=== PATIENT | female | born 1995 | race Two or more races ===

== ENCOUNTER 2018-08-04 16:51 | Inpatient (IN) | payer SELFPAY ==
[~2018-08-04] VITALS: Ht 154.9 cm; Wt 65.8 kg
[2018-08-04 17:17] LABS: BASO % 0 % (0-3); EOS # 0.1 x10^3/uL (0.0-0.7); EOS % 2 % (0-3); HEMATOCRIT 40.3 % (36.0-47.0); HEMOGLOBIN 13.7 g/dL (12.0-15.5); LYMPH # 2.3 x10^3/uL (1.0-4.8); LYMPH % 32 % (24-48); MEAN CORPUSCULAR HEMOGLOBIN 29 pg (25-35); MEAN CORPUSCULAR HGB CONC 34 g/dL (31-37); MEAN CORPUSCULAR VOLUME 86 fL (79-100); MONO # 0.6 x10^3/uL (0.0-1.1); MONO % 9 % (0-9); NEUT # 4.3 x10^3uL (1.8-7.7); NEUT % 58 % (31-73); PLATELET COUNT 260 x10^3/uL (140-400); RED BLOOD COUNT 4.67 x10^6/uL (3.50-5.40); RED CELL DISTRIBUTION WIDTH 14.9 % (11.5-14.5); WHITE BLOOD COUNT 7.4 x10^3/uL (4.0-11.0)
[2018-08-04 17:18] LABS: BILIRUBIN,URINE NEGATIVE (NEG); CLARITY,URINE CLEAR; COLOR,URINE YELLOW; NITRITE,URINE NEGATIVE (NEG); PROTEIN,URINE NEGATIVE (NEG-TRACE)
[2018-08-04 17:29] LABS: CALCIUM 8.9 mg/dL (8.5-10.1); CREATININE 0.8 mg/dL (0.6-1.0); GFR 87.4; POTASSIUM 3.2 mmol/L (3.5-5.1)
[2018-08-04] MEDS ORDERED: ONDANSETRON PF 4 MG/2 ML VIAL. IV ONE (17:30)
[2018-08-04] MEDS ORDERED: fentaNYL PF VIAL 100 MCG/2 ML VIAL IM ONE (17:30)
[2018-08-04 17:31] LABS: BACTERIA,URINE FEW /HPF (0-FEW); SQUAMOUS EPITHELIAL CELL,UR MOD /LPF
[2018-08-04 17:34] LABS: ALBUMIN 3.9 g/dL (3.4-5.0); ALBUMIN/GLOBULIN RATIO 0.8 (1.0-1.7); TOTAL BILIRUBIN 0.2 mg/dL (0.2-1.0); TOTAL PROTEIN 8.7 g/dL (6.4-8.2)
[2018-08-04 17:43] LABS: AMYLASE 68 U/L (25-115); LIPASE 182 U/L (73-393)
--- NOTE | 2018-08-04 17:51 | RAD ---
Limited abdominal ultrasound History: RUQ PAIN, HX OF GALLSTONES Findings: Aorta: Limited visualization, appears grossly unremarkable where seen. Inferior vena cava: Patent Pancreas: Poorly visualized Liver: Unremarkable and not enlarged Gallbladder: Abnormal echogenicity identified within the gallbladder with posterior shadowing. This would most commonly be due to extensive cholelithiasis. The gallbladder is difficult to evaluate due to this shadowing. Positive sonographic Olivares sign. Bile ducts: No evidence of dilatation Right kidney: 11.4 cm length. No evidence of hydronephrosis. Impression: Abnormal gallbladder, difficult to evaluate due to extensive shadowing, most likely due to gallstones. Positive sonographic Olivares's sign can be associated with cholecystitis. Electronically signed by: Sai Keyes MD (08/04/2018 5:48 PM) [id number]
--- NOTE | 2018-08-04 17:54 | PHYS DOC ---
Past Medical History Past Medical History: Gallstones Alcohol Use: None Drug Use: None Adult General Chief Complaint Chief Complaint: ABDOMINAL PAIN HPI HPI Patient is a 23 year old female who presents with excruciating right upper quadrant pain. The patient is 1 month . She states that she was previously diagnosed with gallstones but had not been having a problem with this diagnosis. She states that she had immediate onset of pain today that doubled her over. She presented directly to the emergency department. She has had nausea and vomiting with the nausea. She denies fever. Her last intake was at noon today. She states that her pain started shortly after she consumed food. Review of Systems Review of Systems Constitutional: Denies fever or chills [] Eyes: Denies change in visual acuity, redness, or eye pain [] HENT: Denies nasal congestion or sore throat [] Respiratory: Denies cough or shortness of breath [] Cardiovascular: No additional information not addressed in HPI [] GI: See history of present illness : Denies dysuria or hematuria [] Musculoskeletal: Denies back pain or joint pain [] Integument: Denies rash or skin lesions [] Neurologic: Denies headache, focal weakness or sensory changes [] Endocrine: Denies polyuria or polydipsia [] All other systems were reviewed and found to be within normal limits, except as documented in this note. Current Medications Current Medications Current Medications Medications (Trade) Dose Ordered Sig/[facility] Start Time Stop Time Status Last Admin Dose Admin Fentanyl Citrate (Fentanyl 2ml Vial) 50 mcg 1X ONCE 08/04/18 18:30 08/04/18 18:31 DC 08/04/18 18:22 50 MCG Ondansetron HCl (Zofran) 4 mg 1X ONCE 08/04/18 17:30 08/04/18 17:31 DC 08/04/18 17:17 4 MG Potassium Chloride (Klor-Con) 40 meq 1X ONCE 08/04/18 18:15 08/04/18 18:16 DC 08/04/18 18:15 40 MEQ Allergies Allergies Allergies Coded Allergies Type Severity Reaction Last Updated Verified No Known Drug Allergies 08/04/18 No Physical Exam Physical Exam Constitutional: Well developed, well nourished, no acute distress, non-toxic appearance. [] Cardiovascular:Heart rate regular rhythm, no murmur [] Lungs & Thorax: Bilateral breath sounds clear to auscultation [] Abdomen: Bowel sounds normal, right upper quadrant tenderness with guarding, Olivares's is positive, no masses, no pulsatile masses. [] Skin: Warm, dry, no erythema, no rash. [] Back: No tenderness, no CVA tenderness. [] Extremities: No tenderness, no cyanosis, no clubbing, ROM intact, no edema. [] Neurologic: Alert and oriented X 3, normal motor function, normal sensory function, no focal deficits noted. [] Psychologic: Affect normal, judgement normal, mood normal. [] Current Patient Data Vital Signs Vital Signs Date Time Temp Pulse Resp B/P (MAP) Pulse Ox O2 Delivery O2 Flow Rate FiO2 08/04/18 18:30 70 18 103/58 (73) 100 08/04/18 17:07 98.0 Room Air 98.0 Lab Values Laboratory Tests Test 08/04/18 16:59 08/04/18 17:00 POC Urine HCG, Qualitative Hcg negative (Negative) White Blood Count 7.4 x10^3/uL (4.0-11.0) Red Blood Count 4.67 x10^6/uL (3.50-5.40) Hemoglobin 13.7 g/dL (12.0-15.5) Hematocrit 40.3 % (36.0-47.0) Mean Corpuscular Volume 86 fL (79-100) Mean Corpuscular Hemoglobin 29 pg (25-35) Mean Corpuscular Hemoglobin Concent 34 g/dL (31-37) Red Cell Distribution Width 14.9 % (11.5-14.5) H Platelet Count 260 x10^3/uL (140-400) Neutrophils (%) (Auto) 58 % (31-73) Lymphocytes (%) (Auto) 32 % (24-48) Monocytes (%) (Auto) 9 % (0-9) Eosinophils (%) (Auto) 2 % (0-3) Basophils (%) (Auto) 0 % (0-3) Neutrophils # (Auto) 4.3 x10^3uL (1.8-7.7) Lymphocytes # (Auto) 2.3 x10^3/uL (1.0-4.8) Monocytes # (Auto) 0.6 x10^3/uL (0.0-1.1) Eosinophils # (Auto) 0.1 x10^3/uL (0.0-0.7) Basophils # (Auto) 0.0 x10^3/uL (0.0-0.2) Urine Collection Type Unknown Urine Color Yellow Urine Clarity Clear Urine pH 7.0 Urine Specific Fisher 1.020 Urine Protein Negative mg/dL (NEG-TRACE) Urine Glucose (UA) Negative mg/dL (NEG) Urine Ketones (Stick) Negative mg/dL (NEG) Urine Blood Negative (NEG) Urine Nitrite Negative (NEG) Urine Bilirubin Negative (NEG) Urine Urobilinogen Dipstick 1.0 mg/dL (0.2 mg/dL) Urine Leukocyte Esterase Negative (NEG) Urine RBC 1-2 /HPF (0-2) Urine WBC 1-4 /HPF (0-4) Urine Squamous Epithelial Cells Mod /LPF Urine Bacteria Few /HPF (0-FEW) Urine Mucus Mod /LPF Sodium Level 140 mmol/L (136-145) Potassium Level 3.2 mmol/L (3.5-5.1) L Chloride Level 101 mmol/L (98-107) Carbon Dioxide Level 29 mmol/L (21-32) Anion Gap 10 (6-14) Blood Urea Nitrogen 14 mg/dL (7-20) Creatinine 0.8 mg/dL (0.6-1.0) Estimated GFR (Cockcroft-Gault) 87.4 BUN/Creatinine Ratio 18 (6-20) Glucose Level 80 mg/dL (70-99) Calcium Level 8.9 mg/dL (8.5-10.1) Total Bilirubin 0.2 mg/dL (0.2-1.0) Aspartate Amino Transferase (AST) 44 U/L (15-37) H Alanine Aminotransferase (ALT) 49 U/L (14-59) Alkaline Phosphatase 95 U/L (46-116) Total Protein 8.7 g/dL (6.4-8.2) H Albumin 3.9 g/dL (3.4-5.0) Albumin/Globulin Ratio 0.8 (1.0-1.7) L Amylase Level 68 U/L (25-115) Lipase 182 U/L (73-393) Laboratory Tests 08/04/18 17:00 Laboratory Tests 08/04/18 17:00 EKG EKG [] Radiology/Procedures Radiology/Procedures []PATIENT: RANULFO YODERACCOUNT: [id number]#: [id number] : 1995 LOCATION: ER AGE: 23 SEX: F EXAM STATUS: REG ER ORD. PHYSICIAN: DIANA GRACE APRN REASON: ruq pain, hx gallstones PROCEDURE: ABDOMEN LTD Limited abdominal ultrasound History: RUQ PAIN, HX OF GALLSTONES Findings: Aorta: Limited visualization, appears grossly unremarkable where seen. Inferior vena cava: Patent Pancreas: Poorly visualized Liver: Unremarkable and not enlarged Gallbladder: Abnormal echogenicity identified within the gallbladder with posterior shadowing. This would most commonly be due to extensive cholelithiasis. The gallbladder is difficult to evaluate due to this shadowing. Positive sonographic Olivares sign. Bile ducts: No evidence of dilatation Right kidney: 11.4 cm length. No evidence of hydronephrosis. Impression: Abnormal gallbladder, difficult to evaluate due to extensive shadowing, most likely due to gallstones. Positive sonographic Olivares's sign can be associated with cholecystitis. Electronically signed by: Sai Keyes MD (08/04/2018 5:48 PM) [id number] DICTATED and SIGNED BY: SAI KEYES MD DATE: 08/04/181744 Course & Med Decision Making Course & Med Decision Making Pertinent Labs and Imaging studies reviewed. (See chart for details) []The patient received fentanyl in the emergency Department as well as Zofran to control her symptoms. Dr. Izaguirre was consulted in the care of this patient and he will take her to surgery tomorrow. Dr. Sheridan admitted the patient to his service. The patient is to remain nothing by mouth. Dragon Disclaimer Dragon Disclaimer This electronic medical record was generated, in whole or in part, using a voice recognition dictation system. Departure Departure Disposition: 09 ADMITTED INPATIENT Admitting Physician: Julieta Sheridan Condition: GOOD Referrals: NO PCP (PCP) DIANA GRACE APRN Aug 04, 2018 17:54
[2018-08-04] MEDS ORDERED: POTASSIUM CHLORIDE 20 MEQ TABLET.ER. PO ONE (18:15)
[2018-08-04] MEDS ORDERED: fentaNYL PF VIAL 100 MCG/2 ML VIAL IV ONE (18:30)
[2018-08-04] MEDS ORDERED: fentaNYL PF VIAL 100 MCG/2 ML VIAL IV PRN (18:45)
[2018-08-04] MEDS ORDERED: MORPHINE SULFATE 4 MG/ML VIAL. IV PRN (18:45)
[2018-08-04] MEDS ORDERED: ONDANSETRON PF 4 MG/2 ML VIAL. IV PRN (18:45)
[2018-08-04 19:50] VITALS: BP 100/65
[2018-08-04] MEDS: IV NORMAL SALINE 1000ML BAG 1,000 ML IV SCH (20:22)
[2018-08-04 23:00] VITALS: BP 100/63
[2018-08-05] VITALS (13 sets, daily range): BP systolic 90–118; BP diastolic 48–72
--- NOTE | 2018-08-05 00:07 | HP ---
ADMIT DATE: 08/04/2018 CHIEF COMPLAINT: Abdominal pain. HISTORY OF PRESENT ILLNESS: The patient is a pleasant, healthy 23-year-old female who presented with abdominal pain. She had a baby a month ago. We checked her ultrasound. She has got a lot of gallstones. We suspect she has cholecystitis. We are going to admit the patient and consult General Surgery. She has associated nausea and rates it 10/10. She feels miserable. Symptoms are worse with food. PAST MEDICAL HISTORY: Benign other than she had a baby a month ago. ALLERGIES: None. FAMILY HISTORY: Diabetes. SOCIAL HISTORY: She does not drink, smoke or take drugs. MEDICATIONS: Reviewed, please refer to the MRAD. REVIEW OF SYSTEMS: GENERAL: No history of weight change, weakness or fevers. SKIN: No bruising, hair changes or rashes. EYES: No blurred, double or loss of vision. NOSE AND THROAT: No history of nosebleeds, hoarseness or sore throat. HEART: No history of palpitations, chest pain or shortness of breath on exertion. LUNGS: Denies cough, hemoptysis, wheezing or shortness of breath. GASTROINTESTINAL: She complains of abdominal pain. GENITOURINARY: No history of frequency, urgency, hesitancy or nocturia. NEUROLOGIC: Denies history of numbness, tingling, tremor or weakness. PSYCHIATRIC: No history of panic, anxiety or depression. ENDOCRINE: No history of heat or cold intolerance, polyuria or polydipsia. EXTREMITIES: Denies muscle weakness, joint pain, pain on walking or stiffness. PHYSICAL EXAMINATION: VITAL SIGNS: Temperature afebrile, pulse 92, respirations 18, blood pressure 144/90. GENERAL: She is alert, cooperative. Her is present. HEART: Normal S1, S2. LUNGS: Clear to auscultation. ABDOMEN: Soft. Decreased bowel sounds, tender in the right upper quadrant. EXTREMITIES: No edema. SKIN: No rashes. ENDOCRINE: No thyromegaly. LYMPHATICS: No cervical nodes. HEMATOPOIETIC: No bruising. LABORATORY DATA: Potassium is low at 3.2. Hematology is normal. Urinalysis negative. ASSESSMENT AND PLAN: Symptomatic gallstones. The patient has been admitted. We will consult General Surgery. IV fluids, IV Zofran, p.r.n. narcotics. Continue home medicines. Repeat her labs in the morning. PROGNOSIS: Guarded. WALTER SAVAGE DO DR: TIA/love JOB#: [id number] / [id number]
[2018-08-05] MEDS: IV NORMAL SALINE 1000ML BAG 1,000 ML IV SCH ×2 (04:02→10:45)
[2018-08-05 05:06] LABS: BASO % 0 % (0-3); EOS # 0.1 x10^3/uL (0.0-0.7); EOS % 3 % (0-3); HEMATOCRIT 36.5 % (36.0-47.0); HEMOGLOBIN 12.2 g/dL (12.0-15.5); LYMPH # 1.7 x10^3/uL (1.0-4.8); LYMPH % 35 % (24-48); MEAN CORPUSCULAR HEMOGLOBIN 29 pg (25-35); MEAN CORPUSCULAR HGB CONC 34 g/dL (31-37); MEAN CORPUSCULAR VOLUME 87 fL (79-100); MONO # 0.5 x10^3/uL (0.0-1.1); MONO % 10 % (0-9); NEUT # 2.5 x10^3uL (1.8-7.7); NEUT % 52 % (31-73); PLATELET COUNT 216 x10^3/uL (140-400); RED BLOOD COUNT 4.22 x10^6/uL (3.50-5.40); RED CELL DISTRIBUTION WIDTH 14.8 % (11.5-14.5); WHITE BLOOD COUNT 4.8 x10^3/uL (4.0-11.0)
[2018-08-05 05:10] LABS: CALCIUM 8.7 mg/dL (8.5-10.1); CREATININE 0.7 mg/dL (0.6-1.0); POTASSIUM 3.8 mmol/L (3.5-5.1)
[2018-08-05] MEDS ORDERED: SURGICEL HEMOSTAT 4X8 EACH. ONE (08:09)
[2018-08-05] MEDS ORDERED: IOHEXOL 300 MG/ML 100ML VIAL. ONE (08:09)
[2018-08-05] MEDS ORDERED: BUPIVAC MPF-EPI 0.5%-1:200000 30 ML VIAL. ONE (08:09)
[2018-08-05] MEDS ORDERED: IV RINGERS,LACTATED 1000ML 1,000 ML IV SCH (08:38)
[2018-08-05] MEDS ORDERED: HYDROmorphone 2 MG/ML VIAL IV PRN (08:45)
[2018-08-05] MEDS ORDERED: fentaNYL PF VIAL 100 MCG/2 ML VIAL IV PRN ×2 (08:45)
[2018-08-05] MEDS ORDERED: LIDOCAINE 1% PF 2 ML VIAL. ID PRN (08:45)
[2018-08-05] MEDS ORDERED: MORPHINE SULFATE 2 MG/ML VIAL. IV PRN (08:45)
[2018-08-05] MEDS ORDERED: PROCHLORPERAZINE 10 MG/2 ML VIAL. IV PRN (08:45)
[2018-08-05] MEDS ORDERED: ONDANSETRON PF 4 MG/2 ML VIAL. IV PRN (08:45)
[2018-08-05] MEDS ORDERED: PROPOFOL 20 ML IV ONE (09:37)
[2018-08-05] MEDS ORDERED: MIDAZOLAM HCL/PF 2 MG/2 ML VIAL. ONE (09:38)
[2018-08-05] MEDS ORDERED: DEXAMETHASONE SOD PHOS 20 MG/5 ML VIAL. ONE (09:38)
[2018-08-05] MEDS ORDERED: ONDANSETRON PF 4 MG/2 ML VIAL. ONE (09:38)
[2018-08-05] MEDS ORDERED: ROCURONIUM 50 MG/5 ML VIAL. ONE (09:38)
[2018-08-05] MEDS ORDERED: fentaNYL PF VIAL 100 MCG/2 ML VIAL ONE (09:38)
[2018-08-05] MEDS ORDERED: KETOROLAC 30 MG/ML INJ FOR OR. INJ ONE (09:38)
--- NOTE | 2018-08-05 10:09 | PDOC ---
PROGRESS NOTES History of Present Illness History of Present Illness ASSESSMENT Symptomatic gallstones. admitted. General Surgery. to or today IV fluids, IV Zofran, p.r.n. narcotics. home medicines. pain control sq lovenox dvt prophylaxis Vitals Vitals Vital Signs Date Time Temp Pulse Resp B/P (MAP) Pulse Ox O2 Delivery O2 Flow Rate FiO2 08/05/18 07:00 97.9 60 18 95/54 (68) 100 Room Air 97.9 Physical Exam Physical Exam GENERAL: She is alert, cooperative. HEART: Normal S1, S2. LUNGS: Clear to auscultation. ABDOMEN: Soft. Decreased bowel sounds, tender in the right upper quadrant. EXTREMITIES: No edema. SKIN: No rashes. ENDOCRINE: No thyromegaly. LYMPHATICS: No cervical nodes. HEMATOPOIETIC: No bruising. General: Alert, Oriented X3, Cooperative, mild distress Heart: Regular rate, Normal S1, Normal S2 Lungs: Clear Abdomen: Normal bowel sounds Extremities: No clubbing, No cyanosis Skin: No significant lesion Labs LABS Laboratory Tests Test 08/04/18 16:59 08/04/18 17:00 08/05/18 04:15 Bedside Urine HCG, Qualitative Hcg negative (Negative) White Blood Count 7.4 x10^3/uL (4.0-11.0) 4.8 x10^3/uL (4.0-11.0) Red Blood Count 4.67 x10^6/uL (3.50-5.40) 4.22 x10^6/uL (3.50-5.40) Hemoglobin 13.7 g/dL (12.0-15.5) 12.2 g/dL (12.0-15.5) Hematocrit 40.3 % (36.0-47.0) 36.5 % (36.0-47.0) Mean Corpuscular Volume 86 fL (79-100) 87 fL (79-100) Mean Corpuscular Hemoglobin 29 pg (25-35) 29 pg (25-35) Mean Corpuscular Hemoglobin Concent 34 g/dL (31-37) 34 g/dL (31-37) Red Cell Distribution Width 14.9 % (11.5-14.5) 14.8 % (11.5-14.5) Platelet Count 260 x10^3/uL (140-400) 216 x10^3/uL (140-400) Neutrophils (%) (Auto) 58 % (31-73) 52 % (31-73) Lymphocytes (%) (Auto) 32 % (24-48) 35 % (24-48) Monocytes (%) (Auto) 9 % (0-9) 10 % (0-9) Eosinophils (%) (Auto) 2 % (0-3) 3 % (0-3) Basophils (%) (Auto) 0 % (0-3) 0 % (0-3) Neutrophils # (Auto) 4.3 x10^3uL (1.8-7.7) 2.5 x10^3uL (1.8-7.7) Lymphocytes # (Auto) 2.3 x10^3/uL (1.0-4.8) 1.7 x10^3/uL (1.0-4.8) Monocytes # (Auto) 0.6 x10^3/uL (0.0-1.1) 0.5 x10^3/uL (0.0-1.1) Eosinophils # (Auto) 0.1 x10^3/uL (0.0-0.7) 0.1 x10^3/uL (0.0-0.7) Basophils # (Auto) 0.0 x10^3/uL (0.0-0.2) 0.0 x10^3/uL (0.0-0.2) Urine Collection Type Unknown Urine Color Yellow Urine Clarity Clear Urine pH 7.0 Urine Specific [place]field 1.020 Urine Protein Negative mg/dL (NEG-TRACE) Urine Glucose (UA) Negative mg/dL (NEG) Urine Ketones (Stick) Negative mg/dL (NEG) Urine Blood Negative (NEG) Urine Nitrite Negative (NEG) Urine Bilirubin Negative (NEG) Urine Urobilinogen Dipstick 1.0 mg/dL (0.2 mg/dL) Urine Leukocyte Esterase Negative (NEG) Urine RBC 1-2 /HPF (0-2) Urine WBC 1-4 /HPF (0-4) Urine Squamous Epithelial Cells Mod /LPF Urine Bacteria Few /HPF (0-FEW) Urine Mucus Mod /LPF Sodium Level 140 mmol/L (136-145) 141 mmol/L (136-145) Potassium Level 3.2 mmol/L (3.5-5.1) 3.8 mmol/L (3.5-5.1) Chloride Level 101 mmol/L (98-107) 108 mmol/L (98-107) Carbon Dioxide Level 29 mmol/L (21-32) 25 mmol/L (21-32) Anion Gap 10 (6-14) 8 (6-14) Blood Urea Nitrogen 14 mg/dL (7-20) 9 mg/dL (7-20) Creatinine 0.8 mg/dL (0.6-1.0) 0.7 mg/dL (0.6-1.0) Estimated GFR (Cockcroft-Gault) 87.4 102.0 BUN/Creatinine Ratio 18 (6-20) Glucose Level 80 mg/dL (70-99) 82 mg/dL (70-99) Calcium Level 8.9 mg/dL (8.5-10.1) 8.7 mg/dL (8.5-10.1) Total Bilirubin 0.2 mg/dL (0.2-1.0) Aspartate Amino Transf (AST/SGOT) 44 U/L (15-37) Alanine Aminotransferase (ALT/SGPT) 49 U/L (14-59) Alkaline Phosphatase 95 U/L (46-116) Total Protein 8.7 g/dL (6.4-8.2) Albumin 3.9 g/dL (3.4-5.0) Albumin/Globulin Ratio 0.8 (1.0-1.7) Amylase Level 68 U/L (25-115) Lipase 182 U/L (73-393) Assessment and Plan Assessmemt and Plan Problems Medical Problems: (1) Cholelithiasis Status: Acute Comment Review of Relevant I have reviewed the following items jorden (where applicable) has been applied. Labs Laboratory Tests Test 08/04/18 16:59 08/04/18 17:00 08/05/18 04:15 Bedside Urine HCG, Qualitative Hcg negative (Negative) White Blood Count 7.4 x10^3/uL (4.0-11.0) 4.8 x10^3/uL (4.0-11.0) Red Blood Count 4.67 x10^6/uL (3.50-5.40) 4.22 x10^6/uL (3.50-5.40) Hemoglobin 13.7 g/dL (12.0-15.5) 12.2 g/dL (12.0-15.5) Hematocrit 40.3 % (36.0-47.0) 36.5 % (36.0-47.0) Mean Corpuscular Volume 86 fL (79-100) 87 fL (79-100) Mean Corpuscular Hemoglobin 29 pg (25-35) 29 pg (25-35) Mean Corpuscular Hemoglobin Concent 34 g/dL (31-37) 34 g/dL (31-37) Red Cell Distribution Width 14.9 % (11.5-14.5) 14.8 % (11.5-14.5) Platelet Count 260 x10^3/uL (140-400) 216 x10^3/uL (140-400) Neutrophils (%) (Auto) 58 % (31-73) 52 % (31-73) Lymphocytes (%) (Auto) 32 % (24-48) 35 % (24-48) Monocytes (%) (Auto) 9 % (0-9) 10 % (0-9) Eosinophils (%) (Auto) 2 % (0-3) 3 % (0-3) Basophils (%) (Auto) 0 % (0-3) 0 % (0-3) Neutrophils # (Auto) 4.3 x10^3uL (1.8-7.7) 2.5 x10^3uL (1.8-7.7) Lymphocytes # (Auto) 2.3 x10^3/uL (1.0-4.8) 1.7 x10^3/uL (1.0-4.8) Monocytes # (Auto) 0.6 x10^3/uL (0.0-1.1) 0.5 x10^3/uL (0.0-1.1) Eosinophils # (Auto) 0.1 x10^3/uL (0.0-0.7) 0.1 x10^3/uL (0.0-0.7) Basophils # (Auto) 0.0 x10^3/uL (0.0-0.2) 0.0 x10^3/uL (0.0-0.2) Urine Collection Type Unknown Urine Color Yellow Urine Clarity Clear Urine pH 7.0 Urine Specific [place] 1.020 Urine Protein Negative mg/dL (NEG-TRACE) Urine Glucose (UA) Negative mg/dL (NEG) Urine Ketones (Stick) Negative mg/dL (NEG) Urine Blood Negative (NEG) Urine Nitrite Negative (NEG) Urine Bilirubin Negative (NEG) Urine Urobilinogen Dipstick 1.0 mg/dL (0.2 mg/dL) Urine Leukocyte Esterase Negative (NEG) Urine RBC 1-2 /HPF (0-2) Urine WBC 1-4 /HPF (0-4) Urine Squamous Epithelial Cells Mod /LPF Urine Bacteria Few /HPF (0-FEW) Urine Mucus Mod /LPF Sodium Level 140 mmol/L (136-145) 141 mmol/L (136-145) Potassium Level 3.2 mmol/L (3.5-5.1) 3.8 mmol/L (3.5-5.1) Chloride Level 101 mmol/L (98-107) 108 mmol/L (98-107) Carbon Dioxide Level 29 mmol/L (21-32) 25 mmol/L (21-32) Anion Gap 10 (6-14) 8 (6-14) Blood Urea Nitrogen 14 mg/dL (7-20) 9 mg/dL (7-20) Creatinine 0.8 mg/dL (0.6-1.0) 0.7 mg/dL (0.6-1.0) Estimated GFR (Cockcroft-Gault) 87.4 102.0 BUN/Creatinine Ratio 18 (6-20) Glucose Level 80 mg/dL (70-99) 82 mg/dL (70-99) Calcium Level 8.9 mg/dL (8.5-10.1) 8.7 mg/dL (8.5-10.1) Total Bilirubin 0.2 mg/dL (0.2-1.0) Aspartate Amino Transf (AST/SGOT) 44 U/L (15-37) Alanine Aminotransferase (ALT/SGPT) 49 U/L (14-59) Alkaline Phosphatase 95 U/L (46-116) Total Protein 8.7 g/dL (6.4-8.2) Albumin 3.9 g/dL (3.4-5.0) Albumin/Globulin Ratio 0.8 (1.0-1.7) Amylase Level 68 U/L (25-115) Lipase 182 U/L (73-393) Laboratory Tests Test 08/04/18 16:59 08/04/18 17:00 08/05/18 04:15 Bedside Urine HCG, Qualitative Hcg negative (Negative) White Blood Count 7.4 x10^3/uL (4.0-11.0) 4.8 x10^3/uL (4.0-11.0) Red Blood Count 4.67 x10^6/uL (3.50-5.40) 4.22 x10^6/uL (3.50-5.40) Hemoglobin 13.7 g/dL (12.0-15.5) 12.2 g/dL (12.0-15.5) Hematocrit 40.3 % (36.0-47.0) 36.5 % (36.0-47.0) Mean Corpuscular Volume 86 fL (79-100) 87 fL (79-100) Mean Corpuscular Hemoglobin 29 pg (25-35) 29 pg (25-35) Mean Corpuscular Hemoglobin Concent 34 g/dL (31-37) 34 g/dL (31-37) Red Cell Distribution Width 14.9 % (11.5-14.5) 14.8 % (11.5-14.5) Platelet Count 260 x10^3/uL (140-400) 216 x10^3/uL (140-400) Neutrophils (%) (Auto) 58 % (31-73) 52 % (31-73) Lymphocytes (%) (Auto) 32 % (24-48) 35 % (24-48) Monocytes (%) (Auto) 9 % (0-9) 10 % (0-9) Eosinophils (%) (Auto) 2 % (0-3) 3 % (0-3) Basophils (%) (Auto) 0 % (0-3) 0 % (0-3) Neutrophils # (Auto) 4.3 x10^3uL (1.8-7.7) 2.5 x10^3uL (1.8-7.7) Lymphocytes # (Auto) 2.3 x10^3/uL (1.0-4.8) 1.7 x10^3/uL (1.0-4.8) Monocytes # (Auto) 0.6 x10^3/uL (0.0-1.1) 0.5 x10^3/uL (0.0-1.1) Eosinophils # (Auto) 0.1 x10^3/uL (0.0-0.7) 0.1 x10^3/uL (0.0-0.7) Basophils # (Auto) 0.0 x10^3/uL (0.0-0.2) 0.0 x10^3/uL (0.0-0.2) Urine Collection Type Unknown Urine Color Yellow Urine Clarity Clear Urine pH 7.0 Urine Specific [place] 1.020 Urine Protein Negative mg/dL (NEG-TRACE) Urine Glucose (UA) Negative mg/dL (NEG) Urine Ketones (Stick) Negative mg/dL (NEG) Urine Blood Negative (NEG) Urine Nitrite Negative (NEG) Urine Bilirubin Negative (NEG) Urine Urobilinogen Dipstick 1.0 mg/dL (0.2 mg/dL) Urine Leukocyte Esterase Negative (NEG) Urine RBC 1-2 /HPF (0-2) Urine WBC 1-4 /HPF (0-4) Urine Squamous Epithelial Cells Mod /LPF Urine Bacteria Few /HPF (0-FEW) Urine Mucus Mod /LPF Sodium Level 140 mmol/L (136-145) 141 mmol/L (136-145) Potassium Level 3.2 mmol/L (3.5-5.1) 3.8 mmol/L (3.5-5.1) Chloride Level 101 mmol/L (98-107) 108 mmol/L (98-107) Carbon Dioxide Level 29 mmol/L (21-32) 25 mmol/L (21-32) Anion Gap 10 (6-14) 8 (6-14) Blood Urea Nitrogen 14 mg/dL (7-20) 9 mg/dL (7-20) Creatinine 0.8 mg/dL (0.6-1.0) 0.7 mg/dL (0.6-1.0) Estimated GFR (Cockcroft-Gault) 87.4 102.0 BUN/Creatinine Ratio 18 (6-20) Glucose Level 80 mg/dL (70-99) 82 mg/dL (70-99) Calcium Level 8.9 mg/dL (8.5-10.1) 8.7 mg/dL (8.5-10.1) Total Bilirubin 0.2 mg/dL (0.2-1.0) Aspartate Amino Transf (AST/SGOT) 44 U/L (15-37) Alanine Aminotransferase (ALT/SGPT) 49 U/L (14-59) Alkaline Phosphatase 95 U/L (46-116) Total Protein 8.7 g/dL (6.4-8.2) Albumin 3.9 g/dL (3.4-5.0) Albumin/Globulin Ratio 0.8 (1.0-1.7) Amylase Level 68 U/L (25-115) Lipase 182 U/L (73-393) Medications Current Medications Fentanyl Citrate (Fentanyl 2ml Vial) 75 mcg 1X ONCE IM Last administered on at 17:18; Start 08/04/18 at 17:30; Stop 08/04/18 at 17:31; Status DC Ondansetron HCl (Zofran) 4 mg 1X ONCE IV Last administered on 08/04/18at 17:17 ; Start 08/04/18 at 17:30; Stop 08/04/18 at 17:31; Status DC Potassium Chloride (Klor-Con) 40 meq 1X ONCE PO Last administered on at 18:15; Start 08/04/18 at 18:15; Stop 08/04/18 at 18:16; Status DC Fentanyl Citrate (Fentanyl 2ml Vial) 50 mcg 1X ONCE IV Last administered on at 18:22; Start 08/04/18 at 18:30; Stop 08/04/18 at 18:31; Status DC Ondansetron HCl (Zofran) 4 mg PRN Q8HRS PRN IV NAUSEA/VOMITING; Start at 18:45; Stop 08/05/18 at 18:44 Morphine Sulfate (Morphine Sulfate) 4 mg PRN Q2HR PRN IV PAIN; Start 08/04/18 at 18:45; Stop 08/05/18 at 18:44 Fentanyl Citrate (Fentanyl 2ml Vial) 50 mcg PRN Q2HR PRN IV PAIN; Start at 18:45; Stop 08/05/18 at 18:44 Sodium Chloride 1,000 ml @ 125 mls/hr Q8H IV Last administered on 08/05/18at 04:02; Start 08/04/18 at 18:45; Stop 08/05/18 at 18:44 Bupivacaine HCl/ Epinephrine Bitart (Sensorcain-Mpf Epi 0.5%-1:[id number]) 30 ml STK -MED ONCE .ROUTE ; Start 08/05/18 at 08:09; Stop 08/05/18 at 08:10; Status DC Iohexol (Omnipaque 300 Mg/ml) 100 ml STK-MED ONCE .ROUTE ; Start 08/05/18 at 08 :09; Stop 08/05/18 at 08:10; Status DC Cellulose (Surgicel Hemostat 4x8) 1 each STK-MED ONCE .ROUTE ; Start 08/05/18 at 08:09; Stop 08/05/18 at 08:10; Status DC Ondansetron HCl (Zofran) 4 mg PRN Q6HRS PRN IV NAUSEA/VOMITING; Start at 08:45; Stop 08/05/18 at 18:00 Fentanyl Citrate (Fentanyl 2ml Vial) 25 mcg PRN Q5MIN PRN IV MILD PAIN; Start 08/05/18 at 08:45; Stop 08/05/18 at 18:00 Fentanyl Citrate (Fentanyl 2ml Vial) 50 mcg PRN Q5MIN PRN IV MODERATE TO SEVERE PAIN; Start 08/05/18 at 08:45; Stop 08/05/18 at 18:00 Morphine Sulfate (Morphine Sulfate) 1 mg PRN Q10MIN PRN IV SEVERE PAIN; Start 08/05/18 at 08:45; Stop 08/05/18 at 18:00 Ringer's Solution 1,000 ml @ 30 mls/hr Q24H IV ; Start 08/05/18 at 08:38; Stop 08/05/18 at 20:37 Lidocaine HCl (Xylocaine-Mpf 1% 2ml Vial) 2 ml PRN 1X PRN ID PRIOR TO IV START ; Start 08/05/18 at 08:45; Stop 08/05/18 at 18:00 Hydromorphone HCl (Dilaudid) 0.5 mg PRN Q10MIN PRN IV SEV PAIN, Second choice; Start 08/05/18 at 08:45; Stop 08/05/18 at 18:00 Prochlorperazine Edisylate (Compazine) 5 mg PACU PRN PRN IV NAUSEA, MRX1; Start 08/05/18 at 08:45; Stop 08/05/18 at 18:00 Propofol 20 ml @ As Directed STK-MED ONCE IV ; Start 08/05/18 at 09:37; Stop 08/05/18 at 09:38; Status DC Midazolam HCl (Versed) 2 mg STK-MED ONCE .ROUTE ; Start 08/05/18 at 09:38; Stop 08/05/18 at 09:39; Status DC Fentanyl Citrate (Fentanyl 2ml Vial) 100 mcg STK-MED ONCE .ROUTE ; Start at 09:38; Stop 08/05/18 at 09:39; Status DC Rocuronium [place] (Zemuron) 50 mg STK-MED ONCE .ROUTE ; Start 08/05/18 at 09: 38; Stop 08/05/18 at 09:39; Status DC Dexamethasone Sodium Phosphate (Decadron) 20 mg STK-MED ONCE .ROUTE ; Start at 09:38; Stop 08/05/18 at 09:39; Status DC Ondansetron HCl (Zofran) 4 mg STK-MED ONCE .ROUTE ; Start 08/05/18 at 09:38; Stop 08/05/18 at 09:39; Status DC Ketorolac Tromethamine (Toradol For Or Only) 30 mg STK-MED ONCE INJ ; Start at 09:38; Stop 08/05/18 at 09:39; Status DC Vitals/I & O Vital Sign - Last 24 Hours 08/04/18 08/04/18 08/04/18 08/04/18 17:07 17:18 18:22 18:30 Temp 98.0 98.0 Pulse 75 70 Resp 16 18 B/P (MAP) 130/70 (90) 103/58 (73) Pulse Ox 100 100 100 100 O2 Delivery Room Air 08/04/18 08/04/18 08/05/18 08/05/18 19:50 23:00 03:00 07:00 Temp 98.2 97.8 97.5 97.9 98.2 97.8 97.5 97.9 Pulse 63 70 62 60 Resp 18 18 18 18 B/P (MAP) 100/65 (77) 100/63 (75) 90/48 (62) 95/54 (68) Pulse Ox 99 97 99 100 O2 Delivery Room Air Room Air Room Air Room Air Intake and Output 08/04/18 08/04/18 08/05/18 15:00 23:00 07:00 Intake Total 1200 ml Balance 1200 ml GARTH SAMPSON MD Aug 05, 2018 10:09
--- NOTE | 2018-08-05 10:26 | PDOC2 ---
CONSULT Date of Consult Date of Consult DATE: 08/05/18 TIME: 10:23 Reason for Consult Reason for Consult: Abdominal pain Referring Physician Referring Physician: Fatimah Identification/Chief Complaint Chief Complaint Abdominal pain with nausea Source Source: Patient History of Present Illness Reason for Visit: 23-year-old female is had multiple episodes of right upper quadrant abdominal pain several of these times during her she since delivered and is having severe right upper quadrant abdominal pain ultrasound shows multiple gallstones and contracted gallbladder Past Medical History Cardiovascular: No pertinent hx Pulmonary: No pertinent hx GI: No pertinent hx Heme/Onc: No pertinent hx Hepatobiliary: No pertinent hx Psych: No pertinent hx Infectious disease: No pertinent hx ENT: No pertinent hx Renal/: No pertinent hx Dermatology: No pertinent hx Past Surgical History Past Surgical History: No pertinent history Family History Family History: No Significant Social History No ALCOHOL: none Drugs: None Lives: with Family Current Problem List Problem List Problems Medical Problems: (1) Cholelithiasis Status: Acute Current Medications Current Medications Current Medications Fentanyl Citrate (Fentanyl 2ml Vial) 75 mcg 1X ONCE IM Last administered on at 17:18; Start 08/04/18 at 17:30; Stop 08/04/18 at 17:31; Status DC Ondansetron HCl (Zofran) 4 mg 1X ONCE IV Last administered on 08/04/18at 17:17 ; Start 08/04/18 at 17:30; Stop 08/04/18 at 17:31; Status DC Potassium Chloride (Klor-Con) 40 meq 1X ONCE PO Last administered on at 18:15; Start 08/04/18 at 18:15; Stop 08/04/18 at 18:16; Status DC Fentanyl Citrate (Fentanyl 2ml Vial) 50 mcg 1X ONCE IV Last administered on at 18:22; Start 08/04/18 at 18:30; Stop 08/04/18 at 18:31; Status DC Ondansetron HCl (Zofran) 4 mg PRN Q8HRS PRN IV NAUSEA/VOMITING; Start at 18:45; Stop 08/05/18 at 18:44 Morphine Sulfate (Morphine Sulfate) 4 mg PRN Q2HR PRN IV PAIN; Start 08/04/18 at 18:45; Stop 08/05/18 at 18:44 Fentanyl Citrate (Fentanyl 2ml Vial) 50 mcg PRN Q2HR PRN IV PAIN; Start at 18:45; Stop 08/05/18 at 18:44 Sodium Chloride 1,000 ml @ 125 mls/hr Q8H IV Last administered on 08/05/18at 04:02; Start 08/04/18 at 18:45; Stop 08/05/18 at 18:44 Bupivacaine HCl/ Epinephrine Bitart (Sensorcain-Mpf Epi 0.5%-[id number]) 30 ml STK -MED ONCE .ROUTE ; Start 08/05/18 at 08:09; Stop 08/05/18 at 08:10; Status DC Iohexol (Omnipaque 300 Mg/ml) 100 ml STK-MED ONCE .ROUTE ; Start 08/05/18 at 08 :09; Stop 08/05/18 at 08:10; Status DC Cellulose (Surgicel Hemostat 4x8) 1 each STK-MED ONCE .ROUTE ; Start 08/05/18 at 08:09; Stop 08/05/18 at 08:10; Status DC Ondansetron HCl (Zofran) 4 mg PRN Q6HRS PRN IV NAUSEA/VOMITING; Start at 08:45; Stop 08/05/18 at 18:00 Fentanyl Citrate (Fentanyl 2ml Vial) 25 mcg PRN Q5MIN PRN IV MILD PAIN; Start 08/05/18 at 08:45; Stop 08/05/18 at 18:00 Fentanyl Citrate (Fentanyl 2ml Vial) 50 mcg PRN Q5MIN PRN IV MODERATE TO SEVERE PAIN; Start 08/05/18 at 08:45; Stop 08/05/18 at 18:00 Morphine Sulfate (Morphine Sulfate) 1 mg PRN Q10MIN PRN IV SEVERE PAIN; Start 08/05/18 at 08:45; Stop 08/05/18 at 18:00 Ringer's Solution 1,000 ml @ 30 mls/hr Q24H IV ; Start 08/05/18 at 08:38; Stop 08/05/18 at 20:37 Lidocaine HCl (Xylocaine-Mpf 1% 2ml Vial) 2 ml PRN 1X PRN ID PRIOR TO IV START ; Start 08/05/18 at 08:45; Stop 08/05/18 at 18:00 Hydromorphone HCl (Dilaudid) 0.5 mg PRN Q10MIN PRN IV SEV PAIN, Second choice; Start 08/05/18 at 08:45; Stop 08/05/18 at 18:00 Prochlorperazine Edisylate (Compazine) 5 mg PACU PRN PRN IV NAUSEA, MRX1; Start 08/05/18 at 08:45; Stop 08/05/18 at 18:00 Propofol 20 ml @ As Directed STK-MED ONCE IV ; Start 08/05/18 at 09:37; Stop 08/05/18 at 09:38; Status DC Midazolam HCl (Versed) 2 mg STK-MED ONCE .ROUTE ; Start 08/05/18 at 09:38; Stop 08/05/18 at 09:39; Status DC Fentanyl Citrate (Fentanyl 2ml Vial) 100 mcg STK-MED ONCE .ROUTE ; Start at 09:38; Stop 08/05/18 at 09:39; Status DC Rocuronium [place] (Zemuron) 50 mg STK-MED ONCE .ROUTE ; Start 08/05/18 at 09: 38; Stop 08/05/18 at 09:39; Status DC Dexamethasone Sodium Phosphate (Decadron) 20 mg STK-MED ONCE .ROUTE ; Start at 09:38; Stop 08/05/18 at 09:39; Status DC Ondansetron HCl (Zofran) 4 mg STK-MED ONCE .ROUTE ; Start 08/05/18 at 09:38; Stop 08/05/18 at 09:39; Status DC Ketorolac Tromethamine (Toradol For Or Only) 30 mg STK-MED ONCE INJ ; Start at 09:38; Stop 08/05/18 at 09:39; Status DC Cefazolin Sodium 50 ml @ As Directed STK-MED ONCE IV ; Start 08/05/18 at 10:14 ; Stop 08/05/18 at 10:15; Status DC Allergies Allergies: Coded Allergies: No Known Drug Allergies (Unverified , 08/04/18) ROS Gastrointestinal: Yes Nausea, Yes Abdominal Pain Physical Exam General: Alert, Oriented X3, Cooperative, mild distress HEENT: Atraumatic, PERRLA, EOMI Lungs: Clear to auscultation, Normal air movement Heart: Regular rate, No murmurs Abdomen: Normal bowel sounds, Soft, Other (tender to palpation right upper quadrant) Extremities: No edema Skin: No significant lesion Neuro: Normal speech Psych/Mental Status: Mental status NL Vitals VITALS Vital Signs Date Time Temp Pulse Resp B/P (MAP) Pulse Ox O2 Delivery O2 Flow Rate FiO2 08/05/18 10:07 97.2 62 16 102/65 100 Room Air 97.2 Labs Labs Laboratory Tests Test 08/04/18 16:59 08/04/18 17:00 08/05/18 04:15 Bedside Urine HCG, Qualitative Hcg negative (Negative) White Blood Count 7.4 x10^3/uL (4.0-11.0) 4.8 x10^3/uL (4.0-11.0) Red Blood Count 4.67 x10^6/uL (3.50-5.40) 4.22 x10^6/uL (3.50-5.40) Hemoglobin 13.7 g/dL (12.0-15.5) 12.2 g/dL (12.0-15.5) Hematocrit 40.3 % (36.0-47.0) 36.5 % (36.0-47.0) Mean Corpuscular Volume 86 fL (79-100) 87 fL (79-100) Mean Corpuscular Hemoglobin 29 pg (25-35) 29 pg (25-35) Mean Corpuscular Hemoglobin Concent 34 g/dL (31-37) 34 g/dL (31-37) Red Cell Distribution Width 14.9 % (11.5-14.5) 14.8 % (11.5-14.5) Platelet Count 260 x10^3/uL (140-400) 216 x10^3/uL (140-400) Neutrophils (%) (Auto) 58 % (31-73) 52 % (31-73) Lymphocytes (%) (Auto) 32 % (24-48) 35 % (24-48) Monocytes (%) (Auto) 9 % (0-9) 10 % (0-9) Eosinophils (%) (Auto) 2 % (0-3) 3 % (0-3) Basophils (%) (Auto) 0 % (0-3) 0 % (0-3) Neutrophils # (Auto) 4.3 x10^3uL (1.8-7.7) 2.5 x10^3uL (1.8-7.7) Lymphocytes # (Auto) 2.3 x10^3/uL (1.0-4.8) 1.7 x10^3/uL (1.0-4.8) Monocytes # (Auto) 0.6 x10^3/uL (0.0-1.1) 0.5 x10^3/uL (0.0-1.1) Eosinophils # (Auto) 0.1 x10^3/uL (0.0-0.7) 0.1 x10^3/uL (0.0-0.7) Basophils # (Auto) 0.0 x10^3/uL (0.0-0.2) 0.0 x10^3/uL (0.0-0.2) Urine Collection Type Unknown Urine Color Yellow Urine Clarity Clear Urine pH 7.0 Urine Specific [place] 1.020 Urine Protein Negative mg/dL (NEG-TRACE) Urine Glucose (UA) Negative mg/dL (NEG) Urine Ketones (Stick) Negative mg/dL (NEG) Urine Blood Negative (NEG) Urine Nitrite Negative (NEG) Urine Bilirubin Negative (NEG) Urine Urobilinogen Dipstick 1.0 mg/dL (0.2 mg/dL) Urine Leukocyte Esterase Negative (NEG) Urine RBC 1-2 /HPF (0-2) Urine WBC 1-4 /HPF (0-4) Urine Squamous Epithelial Cells Mod /LPF Urine Bacteria Few /HPF (0-FEW) Urine Mucus Mod /LPF Sodium Level 140 mmol/L (136-145) 141 mmol/L (136-145) Potassium Level 3.2 mmol/L (3.5-5.1) 3.8 mmol/L (3.5-5.1) Chloride Level 101 mmol/L (98-107) 108 mmol/L (98-107) Carbon Dioxide Level 29 mmol/L (21-32) 25 mmol/L (21-32) Anion Gap 10 (6-14) 8 (6-14) Blood Urea Nitrogen 14 mg/dL (7-20) 9 mg/dL (7-20) Creatinine 0.8 mg/dL (0.6-1.0) 0.7 mg/dL (0.6-1.0) Estimated GFR (Cockcroft-Gault) 87.4 102.0 BUN/Creatinine Ratio 18 (6-20) Glucose Level 80 mg/dL (70-99) 82 mg/dL (70-99) Calcium Level 8.9 mg/dL (8.5-10.1) 8.7 mg/dL (8.5-10.1) Total Bilirubin 0.2 mg/dL (0.2-1.0) Aspartate Amino Transf (AST/SGOT) 44 U/L (15-37) Alanine Aminotransferase (ALT/SGPT) 49 U/L (14-59) Alkaline Phosphatase 95 U/L (46-116) Total Protein 8.7 g/dL (6.4-8.2) Albumin 3.9 g/dL (3.4-5.0) Albumin/Globulin Ratio 0.8 (1.0-1.7) Amylase Level 68 U/L (25-115) Lipase 182 U/L (73-393) Laboratory Tests Test 08/04/18 16:59 08/04/18 17:00 08/05/18 04:15 Bedside Urine HCG, Qualitative Hcg negative (Negative) White Blood Count 7.4 x10^3/uL (4.0-11.0) 4.8 x10^3/uL (4.0-11.0) Red Blood Count 4.67 x10^6/uL (3.50-5.40) 4.22 x10^6/uL (3.50-5.40) Hemoglobin 13.7 g/dL (12.0-15.5) 12.2 g/dL (12.0-15.5) Hematocrit 40.3 % (36.0-47.0) 36.5 % (36.0-47.0) Mean Corpuscular Volume 86 fL (79-100) 87 fL (79-100) Mean Corpuscular Hemoglobin 29 pg (25-35) 29 pg (25-35) Mean Corpuscular Hemoglobin Concent 34 g/dL (31-37) 34 g/dL (31-37) Red Cell Distribution Width 14.9 % (11.5-14.5) 14.8 % (11.5-14.5) Platelet Count 260 x10^3/uL (140-400) 216 x10^3/uL (140-400) Neutrophils (%) (Auto) 58 % (31-73) 52 % (31-73) Lymphocytes (%) (Auto) 32 % (24-48) 35 % (24-48) Monocytes (%) (Auto) 9 % (0-9) 10 % (0-9) Eosinophils (%) (Auto) 2 % (0-3) 3 % (0-3) Basophils (%) (Auto) 0 % (0-3) 0 % (0-3) Neutrophils # (Auto) 4.3 x10^3uL (1.8-7.7) 2.5 x10^3uL (1.8-7.7) Lymphocytes # (Auto) 2.3 x10^3/uL (1.0-4.8) 1.7 x10^3/uL (1.0-4.8) Monocytes # (Auto) 0.6 x10^3/uL (0.0-1.1) 0.5 x10^3/uL (0.0-1.1) Eosinophils # (Auto) 0.1 x10^3/uL (0.0-0.7) 0.1 x10^3/uL (0.0-0.7) Basophils # (Auto) 0.0 x10^3/uL (0.0-0.2) 0.0 x10^3/uL (0.0-0.2) Urine Collection Type Unknown Urine Color Yellow Urine Clarity Clear Urine pH 7.0 Urine Specific [place] 1.020 Urine Protein Negative mg/dL (NEG-TRACE) Urine Glucose (UA) Negative mg/dL (NEG) Urine Ketones (Stick) Negative mg/dL (NEG) Urine Blood Negative (NEG) Urine Nitrite Negative (NEG) Urine Bilirubin Negative (NEG) Urine Urobilinogen Dipstick 1.0 mg/dL (0.2 mg/dL) Urine Leukocyte Esterase Negative (NEG) Urine RBC 1-2 /HPF (0-2) Urine WBC 1-4 /HPF (0-4) Urine Squamous Epithelial Cells Mod /LPF Urine Bacteria Few /HPF (0-FEW) Urine Mucus Mod /LPF Sodium Level 140 mmol/L (136-145) 141 mmol/L (136-145) Potassium Level 3.2 mmol/L (3.5-5.1) 3.8 mmol/L (3.5-5.1) Chloride Level 101 mmol/L (98-107) 108 mmol/L (98-107) Carbon Dioxide Level 29 mmol/L (21-32) 25 mmol/L (21-32) Anion Gap 10 (6-14) 8 (6-14) Blood Urea Nitrogen 14 mg/dL (7-20) 9 mg/dL (7-20) Creatinine 0.8 mg/dL (0.6-1.0) 0.7 mg/dL (0.6-1.0) Estimated GFR (Cockcroft-Gault) 87.4 102.0 BUN/Creatinine Ratio 18 (6-20) Glucose Level 80 mg/dL (70-99) 82 mg/dL (70-99) Calcium Level 8.9 mg/dL (8.5-10.1) 8.7 mg/dL (8.5-10.1) Total Bilirubin 0.2 mg/dL (0.2-1.0) Aspartate Amino Transf (AST/SGOT) 44 U/L (15-37) Alanine Aminotransferase (ALT/SGPT) 49 U/L (14-59) Alkaline Phosphatase 95 U/L (46-116) Total Protein 8.7 g/dL (6.4-8.2) Albumin 3.9 g/dL (3.4-5.0) Albumin/Globulin Ratio 0.8 (1.0-1.7) Amylase Level 68 U/L (25-115) Lipase 182 U/L (73-393) Images Images Saphenous in the history of present illness Assessment/Plan Assessment/Plan Chronic cholecystitis cholelithiasis plan laparoscopic cholecystectomy GARTH DEUTSCH MD Aug 05, 2018 10:26
[2018-08-05] MEDS ORDERED: NEOSTIGMINE METHYLSULFATE 5 MG/5 ML SYRINGE. ONE (10:52)
[2018-08-05] MEDS ORDERED: GLYCOPYRROLATE 1 MG/5 ML VIAL. ONE (10:52)
[2018-08-05] MEDS ORDERED: PHENYLEPHRINE in 0.9% NACL PF 1 MG/10 ML SYRINGE. IV ONE (10:52)
[2018-08-05] MEDS ORDERED: METOCLOPRAMIDE HCL 10 MG/2 ML VIAL. ONE (10:58)
[2018-08-05] MEDS ORDERED: DESFLURANE 31 TO 60 MINUTES IH ONE (11:08)
--- NOTE | 2018-08-05 11:11 | PDOC4 ---
Operative Note Operative Note Date: 08/05/2018 Preoperative diagnosis: Chronic cholecystitis cholelithiasis Postoperative diagnosis: Same Procedure: Laparoscopic cholecystectomy Surgeon: Dmitriy Specimen: Gallbladder Dictation: Patient is a 23-year-old female is had a known history of gallstones recently delivered baby but the last week has had severe right upper quadrant abdominal pain with nausea ultrasound showing multiple gallstones within the gallbladder. Procedure of laparoscopic cholecystectomy was explained to the patient detail was benefits were also discussed including bleeding infection injury to intra-abdominal contents possibly necessitating further or open operations. Patient seemed understanding gave both verbal and written consent had procedure performed. She was taken to the operating room placed in supine position general anesthesia was initiated once patient was asleep and intubated her abdomen was prepped and draped usual sterile fashion using ChloraPrep and area just below the umbilicus was injected with quarter percent Marcaine with epinephrine incisions made lead blade scalpel varies needle was placed within the abdomen creating pneumoperitoneum was this complete a 11 mm port was placed and a 5 mm camera was placed within the abdomen which was inspected no other abnormalities were noted. A 5mm Port was placed in the epigastrium a second 5 mm port was placed in the right lateral abdomen and one in the right mid abdomen the dome of the gallbladder was grasped and retracted cephalad the infundibulum of the gallbladder's grasped retracted laterally exposing the triangle adherent tissues the triangle are taken down exposing the cystic duct and cystic artery both were doubly clipped and transected the gallbladder's taken off the liver with hook left cautery placed in Endo Catch bag and removed from the umbilicus right upper quadrant was irrigated and suctioned dry hemostasis was deemed to be appropriate and the pneumoperitoneum was reduced all ports removed the fascial defect at the umbilicus was closed with a figure- of-eight 0 Vicryl suture and the skin was reapproximated all port sites with 4- 0 subcuticular Monocryl. Mastisol Steri-Strips and island dressings were applied. Patient was waken next made in the operating room taken recovery in stable condition all sponge instrument needle counts listed as correct estimated blood loss 5 mL GARTH DEUTSCH MD Aug 05, 2018 11:11
[2018-08-05] MEDS ORDERED: BENZOCAINE/MENTHOL LOZENGE. PO PRN (12:30)
[2018-08-05] MEDS: oxyCODONE/APAP 5/325 1 TAB TABLET PO PRN ×3 (13:29→20:04)
[2018-08-05] MEDS ORDERED: ENOXAPARIN 40 MG/0.4 ML SYRINGE. SQ SCH (22:00)
[2018-08-06] MEDS: oxyCODONE/APAP 5/325 1 TAB TABLET PO PRN (00:18)
[2018-08-06 03:00] VITALS: BP 110/59
[2018-08-06 07:00] VITALS: BP 110/65
[2018-08-06] MEDS ORDERED: OXYC1TAB7 PO (08:53)
--- NOTE | 2018-08-06 08:54 | PDOC ---
SURGICAL PROGRESS NOTE Subjective spoke with patient using heel dipper phone tolerating diet minimal pain urinating Vital Signs Vital Signs Date Time Temp Pulse Resp B/P (MAP) Pulse Ox O2 Delivery O2 Flow Rate FiO2 08/06/18 07:00 98.0 68 20 110/65 (80) 100 Room Air 98.0 08/05/18 11:33 10 I&O Intake and Output 08/06/18 07:00 Intake Total 1550 ml Output Total 10 ml Balance 1540 ml Intake Oral 500 ml IV Total 1050 ml Output Estimated Blood Loss 10 ml # Voids 1 General: Alert, Oriented X3, Cooperative, No acute distress Abdomen: Soft Extremities: Other (dressings dry) Labs Laboratory Tests Test 08/04/18 16:59 08/04/18 17:00 08/05/18 04:15 Bedside Urine HCG, Qualitative Hcg negative (Negative) White Blood Count 7.4 x10^3/uL (4.0-11.0) 4.8 x10^3/uL (4.0-11.0) Red Blood Count 4.67 x10^6/uL (3.50-5.40) 4.22 x10^6/uL (3.50-5.40) Hemoglobin 13.7 g/dL (12.0-15.5) 12.2 g/dL (12.0-15.5) Hematocrit 40.3 % (36.0-47.0) 36.5 % (36.0-47.0) Mean Corpuscular Volume 86 fL (79-100) 87 fL (79-100) Mean Corpuscular Hemoglobin 29 pg (25-35) 29 pg (25-35) Mean Corpuscular Hemoglobin Concent 34 g/dL (31-37) 34 g/dL (31-37) Red Cell Distribution Width 14.9 % (11.5-14.5) 14.8 % (11.5-14.5) Platelet Count 260 x10^3/uL (140-400) 216 x10^3/uL (140-400) Neutrophils (%) (Auto) 58 % (31-73) 52 % (31-73) Lymphocytes (%) (Auto) 32 % (24-48) 35 % (24-48) Monocytes (%) (Auto) 9 % (0-9) 10 % (0-9) Eosinophils (%) (Auto) 2 % (0-3) 3 % (0-3) Basophils (%) (Auto) 0 % (0-3) 0 % (0-3) Neutrophils # (Auto) 4.3 x10^3uL (1.8-7.7) 2.5 x10^3uL (1.8-7.7) Lymphocytes # (Auto) 2.3 x10^3/uL (1.0-4.8) 1.7 x10^3/uL (1.0-4.8) Monocytes # (Auto) 0.6 x10^3/uL (0.0-1.1) 0.5 x10^3/uL (0.0-1.1) Eosinophils # (Auto) 0.1 x10^3/uL (0.0-0.7) 0.1 x10^3/uL (0.0-0.7) Basophils # (Auto) 0.0 x10^3/uL (0.0-0.2) 0.0 x10^3/uL (0.0-0.2) Urine Collection Type Unknown Urine Color Yellow Urine Clarity Clear Urine pH 7.0 Urine Specific [place] 1.020 Urine Protein Negative mg/dL (NEG-TRACE) Urine Glucose (UA) Negative mg/dL (NEG) Urine Ketones (Stick) Negative mg/dL (NEG) Urine Blood Negative (NEG) Urine Nitrite Negative (NEG) Urine Bilirubin Negative (NEG) Urine Urobilinogen Dipstick 1.0 mg/dL (0.2 mg/dL) Urine Leukocyte Esterase Negative (NEG) Urine RBC 1-2 /HPF (0-2) Urine WBC 1-4 /HPF (0-4) Urine Squamous Epithelial Cells Mod /LPF Urine Bacteria Few /HPF (0-FEW) Urine Mucus Mod /LPF Sodium Level 140 mmol/L (136-145) 141 mmol/L (136-145) Potassium Level 3.2 mmol/L (3.5-5.1) 3.8 mmol/L (3.5-5.1) Chloride Level 101 mmol/L (98-107) 108 mmol/L (98-107) Carbon Dioxide Level 29 mmol/L (21-32) 25 mmol/L (21-32) Anion Gap 10 (6-14) 8 (6-14) Blood Urea Nitrogen 14 mg/dL (7-20) 9 mg/dL (7-20) Creatinine 0.8 mg/dL (0.6-1.0) 0.7 mg/dL (0.6-1.0) Estimated GFR (Cockcroft-Gault) 87.4 102.0 BUN/Creatinine Ratio 18 (6-20) Glucose Level 80 mg/dL (70-99) 82 mg/dL (70-99) Calcium Level 8.9 mg/dL (8.5-10.1) 8.7 mg/dL (8.5-10.1) Total Bilirubin 0.2 mg/dL (0.2-1.0) Aspartate Amino Transf (AST/SGOT) 44 U/L (15-37) Alanine Aminotransferase (ALT/SGPT) 49 U/L (14-59) Alkaline Phosphatase 95 U/L (46-116) Total Protein 8.7 g/dL (6.4-8.2) Albumin 3.9 g/dL (3.4-5.0) Albumin/Globulin Ratio 0.8 (1.0-1.7) Amylase Level 68 U/L (25-115) Lipase 182 U/L (73-393) Problem List Problems Medical Problems: (1) Cholelithiasis Status: Acute Assessment/Plan s/p dave oneil to [facility] KAMI MAYNARD APRN Aug 06, 2018 08:54
--- NOTE | 2018-08-06 10:23 | PDOC ---
PROGRESS NOTES History of Present Illness History of Present Illness ASSESSMENT Symptomatic gallstones. admitted. General Surgery. to or today IV fluids, IV Zofran, p.r.n. narcotics. home medicines. pain control sq lovenox dvt prophylaxis Vitals Vitals Vital Signs Date Time Temp Pulse Resp B/P (MAP) Pulse Ox O2 Delivery O2 Flow Rate FiO2 08/06/18 08:00 Room Air 08/06/18 07:00 98.0 68 20 110/65 (80) 100 98.0 08/05/18 11:33 10 Physical Exam Physical Exam GENERAL: She is alert, cooperative. HEART: Normal S1, S2. LUNGS: Clear to auscultation. ABDOMEN: Soft. Decreased bowel sounds, tender in the right upper quadrant. EXTREMITIES: No edema. SKIN: No rashes. ENDOCRINE: No thyromegaly. LYMPHATICS: No cervical nodes. HEMATOPOIETIC: No bruising. General: Alert, Oriented X3, Cooperative, No acute distress Heart: Regular rate, Normal S1, Normal S2 Lungs: Clear Abdomen: Soft Extremities: Other (dressings dry) Skin: No significant lesion Assessment and Plan Assessmemt and Plan Problems Medical Problems: (1) Cholelithiasis Status: Acute Comment Review of Relevant I have reviewed the following items jorden (where applicable) has been applied. Labs Laboratory Tests Test 08/04/18 16:59 08/04/18 17:00 08/05/18 04:15 Bedside Urine HCG, Qualitative Hcg negative (Negative) White Blood Count 7.4 x10^3/uL (4.0-11.0) 4.8 x10^3/uL (4.0-11.0) Red Blood Count 4.67 x10^6/uL (3.50-5.40) 4.22 x10^6/uL (3.50-5.40) Hemoglobin 13.7 g/dL (12.0-15.5) 12.2 g/dL (12.0-15.5) Hematocrit 40.3 % (36.0-47.0) 36.5 % (36.0-47.0) Mean Corpuscular Volume 86 fL (79-100) 87 fL (79-100) Mean Corpuscular Hemoglobin 29 pg (25-35) 29 pg (25-35) Mean Corpuscular Hemoglobin Concent 34 g/dL (31-37) 34 g/dL (31-37) Red Cell Distribution Width 14.9 % (11.5-14.5) 14.8 % (11.5-14.5) Platelet Count 260 x10^3/uL (140-400) 216 x10^3/uL (140-400) Neutrophils (%) (Auto) 58 % (31-73) 52 % (31-73) Lymphocytes (%) (Auto) 32 % (24-48) 35 % (24-48) Monocytes (%) (Auto) 9 % (0-9) 10 % (0-9) Eosinophils (%) (Auto) 2 % (0-3) 3 % (0-3) Basophils (%) (Auto) 0 % (0-3) 0 % (0-3) Neutrophils # (Auto) 4.3 x10^3uL (1.8-7.7) 2.5 x10^3uL (1.8-7.7) Lymphocytes # (Auto) 2.3 x10^3/uL (1.0-4.8) 1.7 x10^3/uL (1.0-4.8) Monocytes # (Auto) 0.6 x10^3/uL (0.0-1.1) 0.5 x10^3/uL (0.0-1.1) Eosinophils # (Auto) 0.1 x10^3/uL (0.0-0.7) 0.1 x10^3/uL (0.0-0.7) Basophils # (Auto) 0.0 x10^3/uL (0.0-0.2) 0.0 x10^3/uL (0.0-0.2) Urine Collection Type Unknown Urine Color Yellow Urine Clarity Clear Urine pH 7.0 Urine Specific [place] 1.020 Urine Protein Negative mg/dL (NEG-TRACE) Urine Glucose (UA) Negative mg/dL (NEG) Urine Ketones (Stick) Negative mg/dL (NEG) Urine Blood Negative (NEG) Urine Nitrite Negative (NEG) Urine Bilirubin Negative (NEG) Urine Urobilinogen Dipstick 1.0 mg/dL (0.2 mg/dL) Urine Leukocyte Esterase Negative (NEG) Urine RBC 1-2 /HPF (0-2) Urine WBC 1-4 /HPF (0-4) Urine Squamous Epithelial Cells Mod /LPF Urine Bacteria Few /HPF (0-FEW) Urine Mucus Mod /LPF Sodium Level 140 mmol/L (136-145) 141 mmol/L (136-145) Potassium Level 3.2 mmol/L (3.5-5.1) 3.8 mmol/L (3.5-5.1) Chloride Level 101 mmol/L (98-107) 108 mmol/L (98-107) Carbon Dioxide Level 29 mmol/L (21-32) 25 mmol/L (21-32) Anion Gap 10 (6-14) 8 (6-14) Blood Urea Nitrogen 14 mg/dL (7-20) 9 mg/dL (7-20) Creatinine 0.8 mg/dL (0.6-1.0) 0.7 mg/dL (0.6-1.0) Estimated GFR (Cockcroft-Gault) 87.4 102.0 BUN/Creatinine Ratio 18 (6-20) Glucose Level 80 mg/dL (70-99) 82 mg/dL (70-99) Calcium Level 8.9 mg/dL (8.5-10.1) 8.7 mg/dL (8.5-10.1) Total Bilirubin 0.2 mg/dL (0.2-1.0) Aspartate Amino Transf (AST/SGOT) 44 U/L (15-37) Alanine Aminotransferase (ALT/SGPT) 49 U/L (14-59) Alkaline Phosphatase 95 U/L (46-116) Total Protein 8.7 g/dL (6.4-8.2) Albumin 3.9 g/dL (3.4-5.0) Albumin/Globulin Ratio 0.8 (1.0-1.7) Amylase Level 68 U/L (25-115) Lipase 182 U/L (73-393) Medications Current Medications Fentanyl Citrate (Fentanyl 2ml Vial) 75 mcg 1X ONCE IM Last administered on at 17:18; Start 08/04/18 at 17:30; Stop 08/04/18 at 17:31; Status DC Ondansetron HCl (Zofran) 4 mg 1X ONCE IV Last administered on 08/04/18at 17:17 ; Start 08/04/18 at 17:30; Stop 08/04/18 at 17:31; Status DC Potassium Chloride (Klor-Con) 40 meq 1X ONCE PO Last administered on at 18:15; Start 08/04/18 at 18:15; Stop 08/04/18 at 18:16; Status DC Fentanyl Citrate (Fentanyl 2ml Vial) 50 mcg 1X ONCE IV Last administered on at 18:22; Start 08/04/18 at 18:30; Stop 08/04/18 at 18:31; Status DC Ondansetron HCl (Zofran) 4 mg PRN Q8HRS PRN IV NAUSEA/VOMITING; Start at 18:45; Stop 08/05/18 at 18:44; Status DC Morphine Sulfate (Morphine Sulfate) 4 mg PRN Q2HR PRN IV PAIN; Start 08/04/18 at 18:45; Stop 08/05/18 at 18:44; Status DC Fentanyl Citrate (Fentanyl 2ml Vial) 50 mcg PRN Q2HR PRN IV PAIN; Start at 18:45; Stop 08/05/18 at 18:44; Status DC Sodium Chloride 1,000 ml @ 125 mls/hr Q8H IV Last administered on 08/05/18at 04:02; Start 08/04/18 at 18:45; Stop 08/05/18 at 18:44; Status DC Bupivacaine HCl/ Epinephrine Bitart (Sensorcain-Mpf Epi 0.5%-1:809530) 30 ml STK -MED ONCE .ROUTE Last administered on 08/05/18at 10:39; Start 08/05/18 at 08: 09; Stop 08/05/18 at 08:10; Status DC Iohexol (Omnipaque 300 Mg/ml) 100 ml STK-MED ONCE .ROUTE ; Start 08/05/18 at 08 :09; Stop 08/05/18 at 08:10; Status DC Cellulose (Surgicel Hemostat 4x8) 1 each STK-MED ONCE .ROUTE ; Start 08/05/18 at 08:09; Stop 08/05/18 at 08:10; Status DC Ondansetron HCl (Zofran) 4 mg PRN Q6HRS PRN IV NAUSEA/VOMITING; Start at 08:45; Stop 08/05/18 at 18:00; Status DC Fentanyl Citrate (Fentanyl 2ml Vial) 25 mcg PRN Q5MIN PRN IV MILD PAIN Last administered on 08/05/18at 11:41; Start 08/05/18 at 08:45; Stop 08/05/18 at 18 :00; Status DC Fentanyl Citrate (Fentanyl 2ml Vial) 50 mcg PRN Q5MIN PRN IV MODERATE TO SEVERE PAIN; Start 08/05/18 at 08:45; Stop 08/05/18 at 18:00; Status DC Morphine Sulfate (Morphine Sulfate) 1 mg PRN Q10MIN PRN IV SEVERE PAIN; Start 08/05/18 at 08:45; Stop 08/05/18 at 18:00; Status DC Ringer's Solution 1,000 ml @ 30 mls/hr Q24H IV ; Start 08/05/18 at 08:38; Stop 08/05/18 at 20:37; Status DC Lidocaine HCl (Xylocaine-Mpf 1% 2ml Vial) 2 ml PRN 1X PRN ID PRIOR TO IV START ; Start 08/05/18 at 08:45; Stop 08/05/18 at 18:00; Status DC Hydromorphone HCl (Dilaudid) 0.5 mg PRN Q10MIN PRN IV SEV PAIN, Second choice; Start 08/05/18 at 08:45; Stop 08/05/18 at 18:00; Status DC Prochlorperazine Edisylate (Compazine) 5 mg PACU PRN PRN IV NAUSEA, MRX1; Start 08/05/18 at 08:45; Stop 08/05/18 at 18:00; Status DC Propofol 20 ml @ As Directed STK-MED ONCE IV ; Start 08/05/18 at 09:37; Stop 08/05/18 at 09:38; Status DC Midazolam HCl (Versed) 2 mg STK-MED ONCE .ROUTE ; Start 08/05/18 at 09:38; Stop 08/05/18 at 09:39; Status DC Fentanyl Citrate (Fentanyl 2ml Vial) 100 mcg STK-MED ONCE .ROUTE ; Start at 09:38; Stop 08/05/18 at 09:39; Status DC Rocuronium [place] (Zemuron) 50 mg STK-MED ONCE .ROUTE ; Start 08/05/18 at 09: 38; Stop 08/05/18 at 09:39; Status DC Dexamethasone Sodium Phosphate (Decadron) 20 mg STK-MED ONCE .ROUTE ; Start at 09:38; Stop 08/05/18 at 09:39; Status DC Ondansetron HCl (Zofran) 4 mg STK-MED ONCE .ROUTE ; Start 08/05/18 at 09:38; Stop 08/05/18 at 09:39; Status DC Ketorolac Tromethamine (Toradol For Or Only) 30 mg STK-MED ONCE INJ ; Start at 09:38; Stop 08/05/18 at 09:39; Status DC Cefazolin Sodium 50 ml @ As Directed STK-MED ONCE IV ; Start 08/05/18 at 10:14 ; Stop 08/05/18 at 10:15; Status DC Phenylephrine HCl (PHENYLEPHRINE in 0.9% NACL PF) 1 mg STK-MED ONCE IV ; Start 08/05/18 at 10:52; Stop 08/05/18 at 10:53; Status DC Glycopyrrolate (Robinul) 1 mg STK-MED ONCE .ROUTE ; Start 08/05/18 at 10:52; Stop 08/05/18 at 10:53; Status DC Neostigmine Methylsulfate (Neostigmine Methylsulfate) 5 mg STK-MED ONCE .ROUTE ; Start 08/05/18 at 10:52; Stop 08/05/18 at 10:53; Status DC Metoclopramide HCl (Reglan Vial) 10 mg STK-MED ONCE .ROUTE ; Start 08/05/18 at 10:58; Stop 08/05/18 at 10:59; Status DC Desflurane (Suprane) 30 ml STK-MED ONCE IH ; Start 08/05/18 at 11:08; Stop at 11:09; Status DC Oxycodone/ Acetaminophen (Percocet 5/325) 1 tab PRN Q4HRS PRN PO PAIN MILD Last administered on 08/05/18at 20:04; Start 08/05/18 at 11:15 Oxycodone/ Acetaminophen (Percocet 5/325) 2 tab PRN Q4HRS PRN PO PAIN MODERATE TO SEVERE Last administered on 08/06/18at 00:18; Start 08/05/18 at 11:15 Cefazolin Sodium 50 ml @ 100 mls/hr 1X PREOP PRN IV Pre Op Dose; Start at 06:00; Stop 08/06/18 at 06:00; Status DC Throat Lozenges (Cepacol Sore Throat Lozenge) 1 nikkie PRN Q2HRS PRN PO SORE THROAT Last administered on 08/05/18at 12:35; Start 08/05/18 at 12:30 Enoxaparin Sodium (Lovenox 40mg Syringe) 40 mg Q24H SQ Last administered on at 00:21; Start 08/05/18 at 22:00 Active Scripts Active Oxycodone-Acetaminophen 5-325 (Oxycodone Hcl/Acetaminophen) 1 Each Tablet 1 Tab PO PRN Q4HRS PRN Vitals/I & O Vital Sign - Last 24 Hours 08/05/18 08/05/18 08/05/18 08/05/18 11:18 11:33 11:41 11:48 Temp 98.1 97.8 98.1 97.8 Pulse 69 66 70 Resp 16 16 16 16 B/P (MAP) 119/65 105/61 100/59 Pulse Ox 100 100 97 O2 Delivery Simple Mask Simple Mask Room Air O2 Flow Rate 10 10 08/05/18 08/05/18 08/05/18 08/05/18 12:04 12:11 12:16 12:18 Temp 98.1 98.6 98.1 98.6 Pulse 70 72 69 Resp 16 16 16 B/P (MAP) 107/64 105/51 (69) 106/69 (81) Pulse Ox 100 97 98 O2 Delivery Room Air Room Air Room Air Room Air 08/05/18 08/05/18 08/05/18 08/05/18 12:31 12:46 13:29 13:31 Pulse 67 71 74 B/P (MAP) 103/68 (80) 105/69 (81) 99/57 (71) Pulse Ox 99 99 99 O2 Delivery Room Air 08/05/18 08/05/18 08/05/18 08/05/18 14:01 14:30 14:31 15:31 Pulse 71 75 73 B/P (MAP) 106/58 (74) 104/61 (75) 104/68 (80) Pulse Ox 99 99 98 98 11/17/18 11/17/18 11/17/18 11/17/18 15:34 16:35 17:12 19:00 Temp 98.9 98.9 Pulse 82 65 Resp 16 B/P (MAP) 118/72 (87) 111/54 (73) Pulse Ox 99 96 96 96 O2 Delivery Room Air Room Air 08/05/18 08/05/18 08/05/18 08/05/18 20:04 20:50 21:04 23:00 Temp 98.3 98.3 Pulse 51 Resp 18 B/P (MAP) 101/59 (73) Pulse Ox 96 O2 Delivery Room Air Room Air Room Air Room Air 08/06/18 08/06/18 08/06/18 08/06/18 00:18 01:18 03:00 07:00 Temp 98.8 98.0 98.8 98.0 Pulse 65 68 Resp 18 20 B/P (MAP) 110/59 (76) 110/65 (80) Pulse Ox 96 100 O2 Delivery Room Air Room Air Room Air Room Air 08/06/18 08:00 O2 Delivery Room Air Intake and Output 08/05/18 08/05/18 08/06/18 15:00 23:00 07:00 Intake Total 550 ml 300 ml 700 ml Output Total 10 ml Balance 540 ml 300 ml 700 ml GARTH SAMPSON MD Aug 06, 2018 10:23
[2018-08-06 11:00] VITALS: BP 105/71
--- NOTE | 2018-08-06 13:00 | PDOC3 ---
Discharge Summary Date of Admission: Aug 05, 2018 Date of Discharge: Aug 06, 2018 Follow-Up: 3-5 days Admitting Diagnosis comment: discharge dx Symptomatic gallstones. LAP POLLY POD # 1 admitted. General Surgery. ok with d/c IV fluids, IV Zofran, p.r.n. narcotics. home medicines. pain control sq lovenox dvt prophylaxis d/c Vitals Vitals Vital Signs Date Time Temp Pulse Resp B/P (MAP) Pulse Ox O2 Delivery O2 Flow Rate FiO2 08/06/18 08:00 Room Air 08/06/18 07:00 98.0 68 20 110/65 (80) 100 98.0 08/05/18 11:33 10 Physical Exam Physical Exam GENERAL: She is alert, cooperative. HEART: Normal S1, S2. LUNGS: Clear to auscultation. ABDOMEN: Soft. Decreased bowel sounds, tender in the right upper quadrant. EXTREMITIES: No edema. SKIN: No rashes. ENDOCRINE: No thyromegaly. LYMPHATICS: No cervical nodes. HEMATOPOIETIC: No bruising. General: Alert, Oriented X3, Cooperative, No acute distress Heart: Regular rate, Normal S1, Normal S2 Lungs: Clear Abdomen: Soft Extremities: Other (dressings dry) Skin: No significant lesion FINAL DIAGNOSIS Problems Medical Problems: (1) Cholelithiasis Status: Acute Brief Hospital Course Ms. Lund is a 23 old [sex] who presented with [ CHOLECYSTITIS, ACUTE] CONDITION AT DISCHARGE: Improved Discharge Medications Current Medications Fentanyl Citrate (Fentanyl 2ml Vial) 75 mcg 1X ONCE IM Last administered on at 17:18; Start 08/04/18 at 17:30; Stop 08/04/18 at 17:31; Status DC Ondansetron HCl (Zofran) 4 mg 1X ONCE IV Last administered on 08/04/18at 17:17 ; Start 08/04/18 at 17:30; Stop 08/04/18 at 17:31; Status DC Potassium Chloride (Klor-Con) 40 meq 1X ONCE PO Last administered on at 18:15; Start 08/04/18 at 18:15; Stop 08/04/18 at 18:16; Status DC Fentanyl Citrate (Fentanyl 2ml Vial) 50 mcg 1X ONCE IV Last administered on at 18:22; Start 08/04/18 at 18:30; Stop 08/04/18 at 18:31; Status DC Ondansetron HCl (Zofran) 4 mg PRN Q8HRS PRN IV NAUSEA/VOMITING; Start at 18:45; Stop 08/05/18 at 18:44; Status DC Morphine Sulfate (Morphine Sulfate) 4 mg PRN Q2HR PRN IV PAIN; Start 08/04/18 at 18:45; Stop 08/05/18 at 18:44; Status DC Fentanyl Citrate (Fentanyl 2ml Vial) 50 mcg PRN Q2HR PRN IV PAIN; Start at 18:45; Stop 08/05/18 at 18:44; Status DC Sodium Chloride 1,000 ml @ 125 mls/hr Q8H IV Last administered on 08/05/18at 04:02; Start 08/04/18 at 18:45; Stop 08/05/18 at 18:44; Status DC Bupivacaine HCl/ Epinephrine Bitart (Sensorcain-Mpf Epi 0.5%-1:[id number]) 30 ml STK -MED ONCE .ROUTE Last administered on 08/05/18at 10:39; Start 08/05/18 at 08: 09; Stop 08/05/18 at 08:10; Status DC Iohexol (Omnipaque 300 Mg/ml) 100 ml STK-MED ONCE .ROUTE ; Start 08/05/18 at 08 :09; Stop 08/05/18 at 08:10; Status DC Cellulose (Surgicel Hemostat 4x8) 1 each STK-MED ONCE .ROUTE ; Start 08/05/18 at 08:09; Stop 08/05/18 at 08:10; Status DC Ondansetron HCl (Zofran) 4 mg PRN Q6HRS PRN IV NAUSEA/VOMITING; Start at 08:45; Stop 08/05/18 at 18:00; Status DC Fentanyl Citrate (Fentanyl 2ml Vial) 25 mcg PRN Q5MIN PRN IV MILD PAIN Last administered on 08/05/18at 11:41; Start 08/05/18 at 08:45; Stop 08/05/18 at 18 :00; Status DC Fentanyl Citrate (Fentanyl 2ml Vial) 50 mcg PRN Q5MIN PRN IV MODERATE TO SEVERE PAIN; Start 08/05/18 at 08:45; Stop 08/05/18 at 18:00; Status DC Morphine Sulfate (Morphine Sulfate) 1 mg PRN Q10MIN PRN IV SEVERE PAIN; Start 08/05/18 at 08:45; Stop 08/05/18 at 18:00; Status DC Ringer's Solution 1,000 ml @ 30 mls/hr Q24H IV ; Start 08/05/18 at 08:38; Stop 08/05/18 at 20:37; Status DC Lidocaine HCl (Xylocaine-Mpf 1% 2ml Vial) 2 ml PRN 1X PRN ID PRIOR TO IV START ; Start 08/05/18 at 08:45; Stop 08/05/18 at 18:00; Status DC Hydromorphone HCl (Dilaudid) 0.5 mg PRN Q10MIN PRN IV SEV PAIN, Second choice; Start 08/05/18 at 08:45; Stop 08/05/18 at 18:00; Status DC Prochlorperazine Edisylate (Compazine) 5 mg PACU PRN PRN IV NAUSEA, MRX1; Start 08/05/18 at 08:45; Stop 08/05/18 at 18:00; Status DC Propofol 20 ml @ As Directed STK-MED ONCE IV ; Start 08/05/18 at 09:37; Stop 08/05/18 at 09:38; Status DC Midazolam HCl (Versed) 2 mg STK-MED ONCE .ROUTE ; Start 08/05/18 at 09:38; Stop 08/05/18 at 09:39; Status DC Fentanyl Citrate (Fentanyl 2ml Vial) 100 mcg STK-MED ONCE .ROUTE ; Start at 09:38; Stop 08/05/18 at 09:39; Status DC Rocuronium [place] (Zemuron) 50 mg STK-MED ONCE .ROUTE ; Start 08/05/18 at 09: 38; Stop 08/05/18 at 09:39; Status DC Dexamethasone Sodium Phosphate (Decadron) 20 mg STK-MED ONCE .ROUTE ; Start at 09:38; Stop 08/05/18 at 09:39; Status DC Ondansetron HCl (Zofran) 4 mg STK-MED ONCE .ROUTE ; Start 08/05/18 at 09:38; Stop 08/05/18 at 09:39; Status DC Ketorolac Tromethamine (Toradol For Or Only) 30 mg STK-MED ONCE INJ ; Start at 09:38; Stop 08/05/18 at 09:39; Status DC Cefazolin Sodium 50 ml @ As Directed STK-MED ONCE IV ; Start 08/05/18 at 10:14 ; Stop 08/05/18 at 10:15; Status DC Phenylephrine HCl (PHENYLEPHRINE in 0.9% NACL PF) 1 mg STK-MED ONCE IV ; Start 08/05/18 at 10:52; Stop 08/05/18 at 10:53; Status DC Glycopyrrolate (Robinul) 1 mg STK-MED ONCE .ROUTE ; Start 08/05/18 at 10:52; Stop 08/05/18 at 10:53; Status DC Neostigmine Methylsulfate (Neostigmine Methylsulfate) 5 mg STK-MED ONCE .ROUTE ; Start 08/05/18 at 10:52; Stop 08/05/18 at 10:53; Status DC Metoclopramide HCl (Reglan Vial) 10 mg STK-MED ONCE .ROUTE ; Start 08/05/18 at 10:58; Stop 08/05/18 at 10:59; Status DC Desflurane (Suprane) 30 ml STK-MED ONCE IH ; Start 08/05/18 at 11:08; Stop at 11:09; Status DC Oxycodone/ Acetaminophen (Percocet 5/325) 1 tab PRN Q4HRS PRN PO PAIN MILD Last administered on 08/05/18at 20:04; Start 08/05/18 at 11:15 Oxycodone/ Acetaminophen (Percocet 5/325) 2 tab PRN Q4HRS PRN PO PAIN MODERATE TO SEVERE Last administered on 08/06/18at 00:18; Start 08/05/18 at 11:15 Cefazolin Sodium 50 ml @ 100 mls/hr 1X PREOP PRN IV Pre Op Dose; Start at 06:00; Stop 08/06/18 at 06:00; Status DC Throat Lozenges (Cepacol Sore Throat Lozenge) 1 nikkie PRN Q2HRS PRN PO SORE THROAT Last administered on 08/05/18at 12:35; Start 08/05/18 at 12:30 Enoxaparin Sodium (Lovenox 40mg Syringe) 40 mg Q24H SQ Last administered on at 00:21; Start 08/05/18 at 22:00 Active Scripts Active Oxycodone-Acetaminophen 5-325 (Oxycodone Hcl/Acetaminophen) 1 Each Tablet 1 Tab PO PRN Q4HRS PRN Vital Signs Vital Signs Date Time Temp Pulse Resp B/P (MAP) Pulse Ox O2 Delivery O2 Flow Rate FiO2 08/06/18 11:00 98.3 67 20 105/71 (82) 100 Room Air 98.3 08/05/18 11:33 10 Labs Laboratory Tests Test 08/04/18 16:59 08/04/18 17:00 08/05/18 04:15 Bedside Urine HCG, Qualitative Hcg negative (Negative) White Blood Count 7.4 x10^3/uL (4.0-11.0) 4.8 x10^3/uL (4.0-11.0) Red Blood Count 4.67 x10^6/uL (3.50-5.40) 4.22 x10^6/uL (3.50-5.40) Hemoglobin 13.7 g/dL (12.0-15.5) 12.2 g/dL (12.0-15.5) Hematocrit 40.3 % (36.0-47.0) 36.5 % (36.0-47.0) Mean Corpuscular Volume 86 fL (79-100) 87 fL (79-100) Mean Corpuscular Hemoglobin 29 pg (25-35) 29 pg (25-35) Mean Corpuscular Hemoglobin Concent 34 g/dL (31-37) 34 g/dL (31-37) Red Cell Distribution Width 14.9 % (11.5-14.5) 14.8 % (11.5-14.5) Platelet Count 260 x10^3/uL (140-400) 216 x10^3/uL (140-400) Neutrophils (%) (Auto) 58 % (31-73) 52 % (31-73) Lymphocytes (%) (Auto) 32 % (24-48) 35 % (24-48) Monocytes (%) (Auto) 9 % (0-9) 10 % (0-9) Eosinophils (%) (Auto) 2 % (0-3) 3 % (0-3) Basophils (%) (Auto) 0 % (0-3) 0 % (0-3) Neutrophils # (Auto) 4.3 x10^3uL (1.8-7.7) 2.5 x10^3uL (1.8-7.7) Lymphocytes # (Auto) 2.3 x10^3/uL (1.0-4.8) 1.7 x10^3/uL (1.0-4.8) Monocytes # (Auto) 0.6 x10^3/uL (0.0-1.1) 0.5 x10^3/uL (0.0-1.1) Eosinophils # (Auto) 0.1 x10^3/uL (0.0-0.7) 0.1 x10^3/uL (0.0-0.7) Basophils # (Auto) 0.0 x10^3/uL (0.0-0.2) 0.0 x10^3/uL (0.0-0.2) Urine Collection Type Unknown Urine Color Yellow Urine Clarity Clear Urine pH 7.0 Urine Specific [place] 1.020 Urine Protein Negative mg/dL (NEG-TRACE) Urine Glucose (UA) Negative mg/dL (NEG) Urine Ketones (Stick) Negative mg/dL (NEG) Urine Blood Negative (NEG) Urine Nitrite Negative (NEG) Urine Bilirubin Negative (NEG) Urine Urobilinogen Dipstick 1.0 mg/dL (0.2 mg/dL) Urine Leukocyte Esterase Negative (NEG) Urine RBC 1-2 /HPF (0-2) Urine WBC 1-4 /HPF (0-4) Urine Squamous Epithelial Cells Mod /LPF Urine Bacteria Few /HPF (0-FEW) Urine Mucus Mod /LPF Sodium Level 140 mmol/L (136-145) 141 mmol/L (136-145) Potassium Level 3.2 mmol/L (3.5-5.1) 3.8 mmol/L (3.5-5.1) Chloride Level 101 mmol/L (98-107) 108 mmol/L (98-107) Carbon Dioxide Level 29 mmol/L (21-32) 25 mmol/L (21-32) Anion Gap 10 (6-14) 8 (6-14) Blood Urea Nitrogen 14 mg/dL (7-20) 9 mg/dL (7-20) Creatinine 0.8 mg/dL (0.6-1.0) 0.7 mg/dL (0.6-1.0) Estimated GFR (Cockcroft-Gault) 87.4 102.0 BUN/Creatinine Ratio 18 (6-20) Glucose Level 80 mg/dL (70-99) 82 mg/dL (70-99) Calcium Level 8.9 mg/dL (8.5-10.1) 8.7 mg/dL (8.5-10.1) Total Bilirubin 0.2 mg/dL (0.2-1.0) Aspartate Amino Transf (AST/SGOT) 44 U/L (15-37) Alanine Aminotransferase (ALT/SGPT) 49 U/L (14-59) Alkaline Phosphatase 95 U/L (46-116) Total Protein 8.7 g/dL (6.4-8.2) Albumin 3.9 g/dL (3.4-5.0) Albumin/Globulin Ratio 0.8 (1.0-1.7) Amylase Level 68 U/L (25-115) Lipase 182 U/L (73-393) Allergies Allergies Coded Allergies Type Severity Reaction Last Updated Verified No Known Drug Allergies 08/05/18 No Disposition/Orders: D/C to Home Patient Instructions D/C PLANNING 36 MIN GARTH SAMPSON MD Aug 06, 2018 13:00
--- NOTE | 2018-08-06 13:01 | DISCH ---
DISCHARGE INSTRUCTIONS Condition on Discharge Condition on Discharge: Stable Activity After Discharge Activity Instructions for Disc: Activity as tolerated Bathing Instructions: Shower-keep dressing dry Lifting Instructions after Dis: No heavy lifting, No pulling or pushing Exercise Instruction after Dis: Walk 10 min, 3 x per day Driving Instructions after Dis: Do not drive Diet after Discharge Diet after Discharge: Low Fat Wound Incision Care Wound/Incision Care: Reinforce dressing PRN Contacting the DR. after DC Call your doctor for: If your condition worsens GARTH SAMPSON MD Aug 06, 2018 13:01
--- NOTE | 2018-08-08 16:08 | PATHOLOGY ---
[facility] Accession Number: [id number] . 01 Material submitted: . GALLBLADDER . 01 Clinical history: . Cholelithiasis . 02 Diagnosis: Gallbladder, laparoscopic cholecystectomy: - Cholelithiasis. - Cholesterolosis, focal. - Chronic cholecystitis with focally increased eosinophils. 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 02 Comment: There is no evidence of malignancy. (JPM:settlement worker; 08/08/2018) . 02 Electronically signed: . Ernie Cameron MD, Pathologist NPI- [id number] . 01 Gross description: . The specimen is received in formalin, labeled "Kevon, Mery, gallbladder" and consists of an intact green-diop, edematous, smooth, and shiny gallbladder measuring 10.5 cm in length and up to 3.4 cm in diameter. Opening reveals a lumen filled with gallbladder sludge and multiple multifaceted yellow calculi which measure up to 1.5 cm. The mucosa is green with yellow highlights and focal wall thinning. The wall ranges from 0.1-0.3 cm. 2 possible dark green polyps are present measuring 0.2 x 0.2 cm and 0.3 x 0.2 cm. No additional masses or lesions are identified. Survey Research Professor sections are submitted as follows: . A1: Margin and 2 possible polyps A2: Edematous wall (SDY; 08/07/2018) SYU/SYU . 02 Pathologist provided ICD-10: K80.10, K82.4 . 02 CPT . 615052 Specimen Comment: A courtesy copy of this report has been sent to Specimen Comment: [phone], , . Specimen Comment: Report sent to ,DR SAVAGE / DR GRACE Specimen Comment: A duplicate report has been generated due to demographic updates. Performed at: [address] [facility], [place] [id number] MD Cristopher Marti MD Phone: [phone] Performed at: [address] [id number] MD Ernie Cameron MD Phone: [phone]
== END 2018-08-06 13:30 | disposition home or self-care (01) | DRG 769 ==
LOC: ER 16:51 → 4 NORTH 18:44
PROVIDERS: ADMIT Internal Medicine; ATTEND Internal Medicine
PROC: 0FT44ZZ Resection of Gallbladder, Percutaneous Endoscopic Approach (ICD-10-PCS; principal; 2018-08-05 11:00)
DX: O99.63 Diseases of the digestive system complicating the puerperium (principal); K80.12 Calculus of gallbladder with acute and chronic cholecystitis without obstruction; Z83.3 Family history of diabetes mellitus
CPT/HCPCS: 36415; 76705; 80048; 80053; 81001; 81025; 82150; 83690; 85025; 88304; 96372; 96374; 96375; A7015; J0690; J1100; J1650; J1885; J2250; J2370; J2405; J2704; J2710; J2765; J3010; J3490; J7030; J7120; Q9967; 99285-25